=== PATIENT | female | born 2000 | race Caucasian/White ===

== ENCOUNTER 2024-10-07 14:54 | Emergency (ER) | payer OTHER ==
[~2024-10-07] VITALS: Ht 162.6 cm; Wt 74.3 kg
[2024-10-07 20:35] LABS: LEUKOCYTE ESTERASE ,URINE NEGATIVE (Neg); NITRITES, URINE NEGATIVE (Neg); OCCULT BLOOD,URINE LARGE (Neg)
[2024-10-07 20:43] LABS: UA COLLECTION TYPE CLN CATCH MIDSTREAM
[2024-10-07 20:59] LABS: SQUAMOUS EPITHELIAL CELL,UR MODERATE /LPF (FEW)
[2024-10-07] MEDS ORDERED: CEPH-585 PO (21:42)
--- NOTE | 2024-10-07 21:42 | Physician Documentation ---
History of Present Illness ~ Chief Complaint: Urinary Symptoms Stated Complaint: YEAST INFECTION Time Seen by MD: 18:15 Medication Reconciliation Allergies: Coded Allergies: No Known Allergies (Unverified , 10/07/24) Scheduled Cephalexin*Monohydrate* (Keflex*), 1 CAP PO QID Fluconazole* (Diflucan*), 1 TAB PO ONCE Review of Systems ROS As stated above in the HPI, otherwise all systems are reviewed and negative. Physical Exam Vital Signs: Temperature: 98.6, Source: Temporal, Heart Rate: 68, Respiratory Rate: 16, BP: 107/72, Pulse Oximetry: 100, Weight: 74.300 Physical Exam VITALS: Reviewed and as above. GENERAL: Alert, no apparent distress. HEENT: Normocephalic, atraumatic, PERRL, EOMI, dry mucosa, no erythema RESPIRATORY: Lungs clear, normal breath sounds, no respiratory distress. CHEST: No accessory muscle use, no retractions CV: Regular rate, rhythm, no edema, no murmur, No: JVD GI: Soft, non-tender, bowels sounds present, no rebound, guarding, or rigidity BACK: No CVA tenderness, or swelling MUSCULOSKELETAL No deformities, no edema SKIN: Warm and dry, no rash NEURO: Oriented x4, No motor or sensory deficit PSYCH: Normal mood and affect, no agitation Progress Results/Orders Results/Orders Completed Orders - RANDI STINSON [employer] DEVELOPER Ua W/Microscopic, Cult If Ind (10/07/24 19:22) Vital Signs 10/07/24 10/07/24 10/07/24 15:10 18:44 20:16 Temp 97.6 98.6 98.6 Pulse 64 62 68 Resp 18 16 B/P (MAP) 103/67 106/65 (79) 107/72 (84) Pulse Ox 98 98 100 Laboratory Tests Test 10/07/24 19:22 Urine Specimen Description Cln catch midstream Urine Color Straw Urine Clarity Clear Urine pH 6.0 Urine Specific [place] 1.010 Urine Protein Negative Urine Glucose (UA) Negative Urine Ketones Negative Urine Occult Blood Large H Urine Nitrite Negative Urine Bilirubin Negative Urine Urobilinogen 0.2 Urine Leukocyte Esterase Negative Urine RBC 0-2 Urine WBC 0-4 Urine Squamous Epithelial Cells Moderate Urine Bacteria 3+ Urine Culture Indicated Not ind Volume Urine Centrifuged 4 ml Urine Comment Low volume Medical Decision Making Findings This patient presents with symptoms consistent with acute uncomplicated cystitis. No systemic symptoms. Not septic. Well appearing. Low suspicion for acute pyelonephritis given lack of fever, CVAT, or systemic features. Low suspicion for kidney stone or infected stone. Upreg negative so doubt ectopic . Low suspicion for ovarian torsion, PID, or appendicitis. Treating concurrent suspected Yeast infection. Follow up with primary care provider. Patient will return to the emergency department he has no resolution of symptoms are there is any worsening of her current symptoms. Discuss the presentation of fever continued hematuria for any other additional concerning symptoms. Urinary Diff Dx:Considerations: Include: AAA, , Aortic dissection, Appendicitis, Bowel obstruction, Cholelithiasis, Choleangitis, DJD, Ectopic , Hepatitis, HNP, Impaction, Intrauterine , Musculoskeletal pain, Ovarian torsion, Pancreatitis, PID, Post-Op complication, Pyelonephritis, Renal failure, Strain, Urinary Obstruction, Urolithiasis, Urinary retention, UTI, Vaginitis, Other Genital Diff Dx:Considerations: Include: -Complete, - Incomplete, -Inevitable, Ablortion-Missed, -Threatened, Abruptio placentae, Bartholin abscess, Bartholin cyst, Blood loss anemia, Constipation, Cervicitis, Dsymenorrhea, Ectopic , Foreign body, Hormonal, Hidradenitis suppurativa, Intrauterine , Menorrhagia, Menometrorrhagia, Menstrual bleeding, Myomatous uterus, Perianal abscess, Physiologic discharge, Pinworms, PID, Placenta previa, , Precipitous Hct, Trauma, UTI, Vaginitis(osis)-Atrophic, Vaginitis, Vaginitis(osis)-Bacterial, Vaginitis(osis)- Candidal, Vaginitis(osis)-Contact, Vaginitis(osis)-Herpes, Vaginitis(osis)- Trich., Other Departure Disposition: 01 HOME / SELF CARE / HOMELESS Impression: Primary Impression: Acute urinary tract infection Additional Impression: Vaginal candidiasis Condition: Stable Discharge Instructions: Urinary Tract Infection, Adult, Acute Urinary Retention, Female, [id number] Additional Instructions: Today you were seen in the emergency department for evaluation of painful urination blood urination and symptoms of yeast infection. Have been prescribed an antibiotic two year urinary tract infection and medication to treat her yeast infection please take them until they are done please follow up with her primary care provider or tray packer. To the emergency department if you have any worsening of symptoms particularly associated with back pain or fevers or any additional concerning symptoms. Departure Forms: Excuse form Work or School Excused From: Work Excuse beginning now through the following date: Oct 06, 2024 May Return but still avoid physical Activity from now until: Oct 09, 2024 Referrals: NO PRIMARY CARE PROVIDER (PCP) Prescriptions Fluconazole* (Diflucan*) 150 Mg Tablet 1 TAB PO ONCE for 1 Day, #1 TAB Prov: RANDI STINSON 10/07/24 Cephalexin*Monohydrate* (Keflex*) 500 Mg Capsule 1 CAP PO QID, #40 CAP Prov: RANDI STINSON 10/07/24 Education Educated: Patient Educated regarding: treatment, need for follow up RANDI STINSON Oct 07, 2024 21:42
[2024-10-07] MEDS ORDERED: DIF150T PO (21:44)
[2024-10-07 21:57] VITALS: BP 110/70; PULSE 65; RESP 18; TEMP 98.6; O2SAT 99
== END 2024-10-07 21:58 | disposition home or self-care (01) ==
LOC: ER 14:54
DX: N39.0 Urinary tract infection, site not specified (principal); B37.31 Acute candidiasis of vulva and vagina
CPT/HCPCS: 81001; 99283

== ENCOUNTER 2024-12-23 11:30 | Emergency (ER) | payer OTHER ==
[~2024-12-23] VITALS: Ht 162.6 cm; Wt 76.1 kg
[~2024-12-23 11:30] MED LIST: CEPH-585 PO
--- NOTE | 2024-12-23 13:20 | Physician Documentation ---
History of Present Illness ~ Chief Complaint: Abscess Stated Complaint: ABSCESS Time Seen by MD: 11:52 HPI Patient is seen today with complaints of pain and swelling with redness of her right lower jaw that started as a pimple a few days ago. Patient states it is rapidly gotten worse since yesterday. She denies any fever or chills in his no other concern or complaint at this time. Tetanus Within 5 Years: Yes Medication Reconciliation Allergies: Coded Allergies: No Known Allergies (Unverified , 12/23/24) Scheduled Cephalexin*Monohydrate* (Keflex*), 1 CAP PO QID Review of Systems Constitutional: Denies: chills, fever, weakness Eyes: Denies: pain, blurred vision ENT: Denies: ear pain, nose pain, throat pain, mouth pain Respiratory: Denies: cough, shortness of breath Cardiovascular: Denies: chest pain, palpitations Gastrointestinal: Denies: abdominal pain, nausea, vomiting Genitourinary: Denies: burning, dysuria Female Genitalia: Denies: vaginal discharge, pelvic pain Neurological: Denies: headache, dizziness Musculoskeletal: Denies: pain, swelling Integumentary: Denies: rash, lesions Allergic/Immunologic: Denies: hives, itching Hematologic/Lymphatic: Denies: no symptoms reported Psychiatric: Denies: depression, anxiety Physical Exam Vital Signs: Temperature: 98.3, Source: Oral, Heart Rate: 63, Respiratory Rate: 18, BP: 120/77, Pulse Oximetry: 99, Weight: 76.100 Oxygen Flow Rate: 0 Physical Exam General: Awake and Alert, no acute distress. HEENT: Conjunctiva pink, Sclera clear, Mucus Membranes moist. Neck: Supple without masses and tenderness. Resp: Unlabored. Lungs clear to auscultation bilaterally. Heart: Regular Rate and rhythm, normal S1 and S2 without murmur, rub or gallop. Abdomen: Soft and non tender no organomegaly Extremities: No cyanosis,clubbing or edema. Skin: Warm and Dry. Progress Results/Orders Results/Orders Vital Signs 12/23/24 11:37 Temp 98.3 Pulse 63 Resp 18 B/P (MAP) 120/77 Pulse Ox 99 O2 Flow Rate 0 Medical Decision Making Additional information obtaine: N/A Findings Patient is seen today with complaints of pain and swelling with redness of her right lower jaw that started as a pimple a few days ago. Patient states it is rapidly gotten worse since yesterday. She denies any fever or chills in his no other concern or complaint at this time. Patient was given dose of Tylenol and ibuprofen and Bactrim DS in the ED today by mouth. Prescriptions of the same sent to patient's pharmacy. Patient will perform warm compress twice a day do daily dressing changes and will follow up with primary care in 3-5 days if no better as needed sooner. Return to ED with any worsening, concerning or changing symptoms. Differential Dx:Considerations: Include: Abscess, Cellulitis, Impetigo Departure Disposition: HOME / SELF CARE / HOMELESS Impression: Primary Impression: Abscess Condition: Stable Discharge Instructions: Abscess, Care After Additional Instructions: Patient was given dose of Tylenol and ibuprofen and Bactrim DS in the ED today by mouth. Prescriptions of the same sent to patient's pharmacy. Patient will perform warm compress twice a day do daily dressing changes and will follow up with primary care in 3-5 days if no better as needed sooner. Return to ED with any worsening, concerning or changing symptoms. Referrals: NO PRIMARY CARE PROVIDER (PCP) Prescriptions Acetaminophen (Tylenol Extra Strength) 500 Mg Tablet 2 TAB PO Q6H PRN PRN for pain or fever for 7 Days, #56 TAB Prov: JOSUE LEW 12/23/24 Ibuprofen (Ibuprofen) 800 Mg Tablet 1 TAB PO Q8H for pain for 10 Days, #30 TAB 0 Refills Prov: JOSUE LEW 12/23/24 Sulfamethoxazole/Trimethoprim (Bactrim Ds Tablet) 800 Mg-160 Mg Tablet 1 TAB PO Q12H for 10 Days, #20 TAB Prov: JOSUE LEW 12/23/24 Signature Scribe Signature: No scribe Attestation: No scribe JOSUE LEW Dec 23, 2024 13:20
[2024-12-23] MEDS ORDERED: IBUP-1986 PO (13:28)
[2024-12-23] MEDS ORDERED: ACET-1025 PO (13:28)
[2024-12-23] MEDS ORDERED: SULF1TAB49 PO (13:28)
[2024-12-23] MEDS: ibuprofen tablet 400 MG TABLET PO STA (13:34)
[2024-12-23] MEDS: sulfamethoxazole/trimethoprim DS (800/160mg) tablet PO STA (13:35)
[2024-12-23 13:38] VITALS: BP 128/78; PULSE 78; RESP 16; TEMP 98.6; O2SAT 99
== END 2024-12-23 13:40 | disposition home or self-care (01) ==
LOC: ER 11:31
DX: M27.2 Inflammatory conditions of jaws (principal)
CPT/HCPCS: 99284

== ENCOUNTER 2024-12-29 22:48 | Emergency (ER) | payer OTHER ==
[~2024-12-29] VITALS: Ht 162.6 cm; Wt 68.0 kg
[~2024-12-29 22:48] MED LIST changes: +ACET-1025 PO; +IBUP-1986 PO; +SULF1TAB49 PO
[2024-12-29 22:50] VITALS: BP 118/60; PULSE 98; RESP 15; TEMP 96.8; O2SAT 98
--- NOTE | 2024-12-29 23:15 | Physician Documentation ---
History of Present Illness ~ Chief Complaint: Rash Stated Complaint: ALLERGIC REACTION TO ANTIBIOTIC Time Seen by MD: 22:59 HPI Patient is a 24-year-old female that presents to the emergency department for evaluation of a rash. Patient reports that she had a rash appear on her left arm and left lower extremity has become progressively worse over the last 6 days. Patient reports that she was started on Bactrim for an abscess versus cystic acne to the right lower portion of her face. Patient denies taking any Benadryl as it makes her tired. Patient reports that the rash has become progressively worse. Patient denies any shortness of breath difficulty swallowing chest tightness difficulty breathing fever chills nausea vomiting diarrhea or any other symptoms at this time. Medication Reconciliation Allergies: Coded Allergies: No Known Allergies (Unverified , 12/29/24) Scheduled Cephalexin*Monohydrate* (Keflex*), 1 CAP PO QID Ibuprofen (Ibuprofen), 1 TAB PO Q8H Sulfamethoxazole/Trimethoprim (Bactrim Ds Tablet), 1 TAB PO Q12H Scheduled PRN Acetaminophen (Tylenol Extra Strength), 2 TAB PO Q6H PRN PRN for pain or fever Review of Systems ROS As stated above in the HPI, otherwise all systems are reviewed and negative. Physical Exam Vital Signs: Temperature: 96.8, Source: Temporal, Heart Rate: 98, Respiratory Rate: 15, BP: 118/60, Pulse Oximetry: 98, Weight: 68.000 Physical Exam VITALS: Reviewed and as above. GENERAL: Alert, no apparent distress. HEENT: Normocephalic, atraumatic, PERRL, EOMI, dry mucosa, no erythema RESPIRATORY: Lungs clear, normal breath sounds, no respiratory distress. CHEST: No accessory muscle use, no retractions CV: Regular rate, rhythm, no edema, no murmur, No: JVD GI: Soft, non-tender, bowels sounds present, no rebound, guarding, or rigidity BACK: No CVA tenderness, or swelling MUSCULOSKELETAL No deformities, no edema SKIN: Warm and dry, rash noted to left arm left leg during examination. NEURO: Oriented x4, No motor or sensory deficit PSYCH: Normal mood and affect, no agitation Progress Results/Orders Results/Orders Completed Orders - JACINDA STINSONP Cephalexin Capsule (Keflex Capsule) (12/29/24 23:05) Methylprednisolone Sod Succ (Solumedrol (12/29/24 23:05) Vital Signs 12/29/24 22:50 Temp 96.8 Pulse 98 Resp 15 B/P (MAP) 118/60 Pulse Ox 98 Medical Decision Making Additional information obtaine: other Findings 24-year-old female presented to the ED for evaluation of a worsening rash, which developed around the elbow, lower extremity, and ankle. Rash onset occurred after approximately 60 days of TMP-SMX (Bactrim) therapy, initially prescribed for a facial abscess versus cystic acne. No prior history of TMP-SMX hypersensitivity documented. Assessment: The clinical presentation is consistent with a cutaneous adverse drug reaction to TMP-SMX, given the temporal association and distribution of the rash. TMP-SMX is known to cause a spectrum of hypersensitivity reactions, including maculopapular eruptions, DRESS, and severe cutaneous adverse reactions (SCARs) such as Washington-Donaldo syndrome and toxic epidermal necrolysis.The most common findings in TMP-SMX hypersensitivity include generalized erythema, acral involvement, and possible systemic symptoms. No evidence of mucosal involvement, conjunctivitis, fever, hypotension, or end-organ dysfunction at this time.No airway compromise or respiratory symptoms. Medical Decision-Making: TMP-SMX discontinued immediately per FDA recommendations at first sign of rash to prevent progression to more severe reactions. Patient received 125 mg IV methylprednisolone sodium succinate (Solu-Medrol), which is indicated for severe allergic states and drug hypersensitivity reactions. Antibiotic coverage switched to cephalexin (Keflex), which is appropriate for skin/soft tissue infections; patient denies history of beta-lactam allergy. No evidence of systemic involvement or need for inpatient admission at this time. Patient educated on signs of progression (fever, mucosal involvement, respiratory symptoms, hypotension) and instructed to return to ED for any worsening or new symptoms. Arranged outpatient follow-up with primary care for continued monitoring. Disposition: Stable for discharge. No airway concerns. Rash managed with corticosteroids and change in antibiotic therapy. Close outpatient follow-up and return precautions provided. Patient will follow up with her primary care provider. Patient will return to the emergency department with any worsening or recurrent symptoms or any additional concerning symptoms that we discussed here today. Differential Dx:Considerations: Include: Abscess, AIDS/HIV, Anthrax (cutaneous), Atopic dermatitis, Candidiasis, Contact dermatitis, Drug reaction, Erythema multiforme, Erysipelas, Gangrene, Herpes zoster, Herpes simplex, Hidradenitis suppurativa, Impetigo, Intertrigo, Lymes disease, Molluscum contagiosum, Osteomyelitis, Pediculosis, Pityriasis rosea, Psoriaisis, RMSF, Rosacea, Scabies, Scarlet fever, Tinea, Urticaria, Varicella, Viral exanthema, Other Departure Disposition: 01 HOME / SELF CARE / HOMELESS Impression: Primary Impression: Urticaria Additional Impression: Allergic urticaria Discharge Instructions: Hives Additional Instructions: You were seen today for a rash that developed after taking Bactrim (trimethoprim-sulfamethoxazole) for a skin infection. The rash appeared around your elbow, lower leg, and ankle, and has been getting worse. You received a dose of Solu-Medrol (methylprednisolone) in the emergency department, and your antibiotic has been changed to Keflex (cephalexin). What you should do next: Do not take any more Bactrim. Stopping the medicine is important to prevent the rash from getting worse or causing more serious problems. Take Keflex as prescribed. This is your new antibiotic to treat your skin infection. Follow up with your primary care provider as soon as possible for further evaluation and to monitor your recovery. What to expect: The rash may take several days to improve. Mild itching or redness can be managed with [id number] antihistamines (like diphenhydramine) if needed. If you notice peeling skin, swelling, or new areas of rash, let your doctor know. When to return to the emergency department: If you develop any of the following, seek care immediately: Trouble breathing, swelling of your face or throat, or feeling faint Rash spreading quickly, blistering, or involving your mouth, eyes, or genitals Fever, severe pain, or feeling very sick Yellowing of the skin or eyes, dark urine, or severe stomach pain Important reminders: Do not take Bactrim or any medicine containing sulfa in the future, unless your doctor says it is safe. Let all your healthcare providers know about this reaction. Keep a list of medicines that have caused you problems in the past. If you have any questions or concerns, contact your doctor or return to the emergency department. Thank you for trusting us with your care. Referrals: NO PRIMARY CARE PROVIDER (PCP) Prescriptions Cephalexin*Monohydrate* (Keflex*) 500 Mg Capsule 1 CAP PO QID for 7 Days, #28 CAP Prov: JACINDA STINSON 12/29/24 Education Educated: Patient Educated regarding: diagnosis, treatment, need for follow up Signature Scribe Signature: A Attestation: Scribed for Jacinda Stinson by PATRICIO Hendricks . 12/29/24 23:17 JACINDA STINSON Dec 29, 2024 23:15
[2024-12-30] MEDS ORDERED: HYDR-3686 PO (22:22)
[2024-12-30] MEDS ORDERED: EPIN0.3P3 IM (22:42)
== END 2024-12-29 23:34 | disposition home or self-care (01) ==
LOC: ER 22:48
DX: L50.0 Allergic urticaria (principal)
CPT/HCPCS: 96372; 99283; J2919

== ENCOUNTER 2024-12-30 19:06 | Emergency (ER) | payer OTHER ==
[~2024-12-30] VITALS: Ht 162.6 cm; Wt 76.5 kg
[2024-12-30] MEDS ORDERED: HYDR-3686 PO (22:22)
--- NOTE | 2024-12-30 22:22 | Physician Documentation ---
History of Present Illness ~ Chief Complaint: Rash Stated Complaint: ALLERGIC REACTION Time Seen by MD: 19:49 OK to notify your PCP?: Yes Source: patient Mode of Arrival: POV Exam Limitations: no limitations HPI Ms. Adorno is a 24 y/o female who presents with c/o a rash. She was seen here 3 days ago for a small abscess on the right side of her chin. She was started on Bactrim. She returned yesterday for a diffuse body rash and received a dose of IM Decadron and was changed from Bactrim to Keflex. She is here today because the rash is still itching and she is seeking care for the itching. No oral lesions. No difficulty handling oral secretions. No rash to palms or soles. No known sick contacts. No recent change in detergents/soaps. No recent travel. Medication Reconciliation Allergies: Coded Allergies: No Known Allergies (Unverified , 12/29/24) Scheduled Cephalexin*Monohydrate* (Keflex*), 1 CAP PO QID Cephalexin*Monohydrate* (Keflex*), 1 CAP PO QID Hydroxyzine Hcl (Atarax), 1 TAB PO Q8H Ibuprofen (Ibuprofen), 1 TAB PO Q8H Sulfamethoxazole/Trimethoprim (Bactrim Ds Tablet), 1 TAB PO Q12H Scheduled PRN Acetaminophen (Tylenol Extra Strength), 2 TAB PO Q6H PRN PRN for pain or fever Review of Systems All Other Systems at this time: Reviewed and Negative Physical Exam Vital Signs: RN Vital Signs have been reviewed: Yes, Temperature: 97.0, Source: Temporal, Heart Rate: 78, Respiratory Rate: 18, BP: 116/63, Pulse Oximetry: 96, Weight: 76.500 Oxygen Flow Rate: 0 Physical Exam GEN: Alert and oriented and in NAD. HEENT: NC/AT. PERRLA. No scleral icterus. MMM. No oral lesions. NECK: Supple. No JVD. CHEST: RRR. No M/G/T. LUNGS: CTA B. No W/R/R. ABD: Soft. NTND. + BS. No rebounding or guarding. BACK: No CVA TTP. EXT: No c/c/e. SKIN: Rash to left forearm, torso, and bilateral lower extremities. No rash to palms or soles. NEURO: Alert and oriented x 4. Cooperative. Sensorimotor intact x 4 extremities. Progress Results/Orders Results/Orders Completed Orders - KELLY MARIE MD Hydroxyzine Tablet (Atarax Tablet) (12/30/24 22:20) Vital Signs 12/30/24 19:26 Temp 97.0 Pulse 78 Resp 18 B/P (MAP) 116/63 Pulse Ox 96 O2 Flow Rate 0 Medical Decision Making Additional information obtaine: old records Findings While here in the ED, she remained hemodynamically normal with ABC's intact and in NAD. She is afebrile and nontoxic. She has no oral lesions. MMM. Rash is not suggestive of SJF or TEN. No petechia/purpura. No blisters. Will start her on Hydroxyzine for the itching and also prescribe an Epi pen. She was given follow-up and return instructions. She voiced understanding and agreement with d/c instructions. Differential Dx:Considerations: Include: Pityriasis rosea, RMSF, Scabies, Urticaria, Varicella, Viral exanthema Departure Disposition: 01 HOME / SELF CARE / HOMELESS Impression: Primary Impression: Skin irritation Condition: Stable Discharge Instructions: Pruritus Referrals: NO PRIMARY CARE PROVIDER (PCP) Prescriptions Epinephrine (Epipen 2-Angus) 0.3 Mg/0.3 Ml Auto.injct 1 SYR IM ONCE for 1 Day, #1 PKT 0 Refills Prov: KELLY MARIE MD 12/30/24 Hydroxyzine Hcl (Atarax) 25 Mg Tablet 1 TAB PO Q8H for anxiety for 10 Days, #30 TAB 0 Refills Prov: KELLY MARIE MD 12/30/24 Education Educated: Patient Educated regarding: diagnosis, treatment Signature Scribe Signature: N/A Attestation: N/A KELLY MARIE MD Dec 30, 2024 22:22
[2024-12-30] MEDS ORDERED: EPIN0.3P3 IM (22:42)
[2024-12-30 22:56] VITALS: BP 118/60; PULSE 72; RESP 18; TEMP 98.6; O2SAT 99
== END 2024-12-30 22:57 | disposition home or self-care (01) ==
LOC: ER 19:07
DX: L98.8 Other specified disorders of the skin and subcutaneous tissue (principal); Z79.899 Other long term (current) drug therapy
CPT/HCPCS: 99283; Q0177

== ENCOUNTER 2025-01-10 22:55 | Emergency (ER) | payer OTHER ==
[~2025-01-10] VITALS: Ht 162.6 cm; Wt 74.0 kg
[~2025-01-10 22:55] MED LIST changes: -ACET-1025 PO; +EPIN0.3P3 IM; +HYDR-3686 PO; -SULF1TAB49 PO
[2025-01-10 23:28] VITALS: BP 105/75; PULSE 74; RESP 18; O2SAT 100
[2025-01-10 23:46] LABS: LEUKOCYTE ESTERASE ,URINE NEGATIVE (Neg); NITRITES, URINE NEGATIVE (Neg); OCCULT BLOOD,URINE NEGATIVE (Neg)
[2025-01-10 23:50] LABS: UA COLLECTION TYPE NON-SPECIFIED
--- NOTE | 2025-01-11 00:36 | Physician Documentation ---
History of Present Illness General Chief Complaint: Urinary Symptoms Stated Complaint: POSSIBLE UTI SYMPTOMS Time Seen by MD: 00:34 History of Present Illness Initial Comments 25-year-old female complains of a rash in her inguinal went skin folds for the last 4-5 days. The patient states she has had redness and some discharge that region. The patient states that she has gotten these after receiving antibiotics in the past. She states she has been on antibiotics for urine infection and has had symptoms worsening over last 4-5 days. The patient denies any fevers or chills. The patient states she was given a pill in the past in the went away. The patient denies any history of diabetes. Medication Reconciliation Allergies: Coded Allergies: sulfamethoxazole (Verified Allergy, Intermediate, 01/10/25) Hives trimethoprim (Verified Allergy, Intermediate, 01/10/25) Hives Scheduled Cephalexin*Monohydrate* (Keflex*), 1 CAP PO QID Epinephrine (Epipen 2-Angus), 1 SYR IM ONCE Fluconazole (Fluconazole), 1 TAB PO DAILY Hydroxyzine Hcl (Atarax), 1 TAB PO Q8H Ibuprofen (Ibuprofen), 1 TAB PO Q8H Discontinued Medications Cephalexin*Monohydrate* (Keflex*), 1 CAP PO QID Discontinued Reason: Auto Discontinued Physical Exam Physical Exam Vital Signs: Temperature: 98.2, Source: Temporal, Heart Rate: 74, Respiratory Rate: 18, BP: 105/75, Pulse Oximetry: 100, Weight: 74.000 Physical Exam VITALS: Reviewed and as above. GENERAL: Alert, no apparent distress. HEENT: Normocephalic, atraumatic, PERRL, EOMI, dry mucosa, no erythema BACK: No CVA tenderness, or swelling MUSCULOSKELETAL: No deformities, no edema SKIN: Warm and dry, NEURO: Oriented x4, No motor or sensory deficit PSYCH: Normal mood and affect, no agitation Progress Results/Orders Results/Orders Completed Orders - OHLELENA WHITMORE MD Urinalysis, Cult If Indicated (01/10/25 23:34) Fluconazole Tablet (Diflucan Tablet) (01/11/25 00:45) Medications Received in ER Medications (Trade) Dose Ordered Sig/Lakeshia Route PRN Reason Start Time Stop Time Status Last Admin Dose Admin (Diflucan tablet) 200 mg ONCE ONCE PO 01/11/25 00:45 01/11/25 00:47 DC 01/11/25 00:52 200 MG Vital Signs 01/10/25 01/11/25 23:28 01:17 Temp 98.2 98.2 Pulse 74 Resp 18 B/P (MAP) 105/75 Pulse Ox 100 Laboratory Tests Test 01/10/25 23:16 Urine Specimen Description Non-specified Urine Color Yellow Urine Clarity Clear Urine pH 6.5 Urine Specific [place] 1.020 Urine Protein Negative Urine Glucose (UA) Negative Urine Ketones Negative Urine Occult Blood Negative Urine Nitrite Negative Urine Bilirubin Negative Urine Urobilinogen 1.0 Urine Leukocyte Esterase Negative Urine Culture Indicated Not ind Volume Urine Centrifuged 10 ml Urine Comment Medical Decision Making Additional information obtaine: other Findings The patient with a likely fungal and Trichomonas candidal rash, the patient will be given a dose of fluconazole here and then discharged with a prescription for fluconazole for symptoms recur. Prior hospitalizations has been reviewed. The patient's pulse oximetry was interpreted as normal and adequate Differential Diagnosis Candidal intertrigo, intertrigo Departure Disposition: HOME / SELF CARE / HOMELESS Impression: Primary Impression: Intertriginous candidiasis Discharge Instructions: Intertrigo, [id number] Referrals: NO PRIMARY CARE PROVIDER (PCP) Prescriptions Fluconazole (Fluconazole) 200 Mg Tablet 1 TAB PO DAILY, #2 TAB take one pill once may repeat in 72 hours if discharge continues Prov: ELENA GOLD MD 01/11/25 Signature Scribe Signature: no scribe Attestation: The note accurately reflects work and decisions made by me.Elena Gold MD 01/11/25 01:39 ELENA GOLD MD Jan 11, 2025 00:36
[2025-01-11] MEDS ORDERED: FLUC200T8 PO (00:42)
[2025-01-11 01:17] VITALS: TEMP 98.2
== END 2025-01-11 01:20 | disposition home or self-care (01) ==
LOC: ER 22:56
DX: B37.2 Candidiasis of skin and nail (principal); Z88.2 Allergy status to sulfonamides; Z88.8 Allergy status to other drugs, medicaments and biological substances; Z79.899 Other long term (current) drug therapy
CPT/HCPCS: 81003; 99283